=== PATIENT | female | born 1985 | race Asian ===

== ENCOUNTER → 2016-10-31 | Outpatient (CLI) | payer BC | END | disposition home or self-care (01) | LOC: C.LAB 07:56 | PROVIDERS: ATTEND Obstetrics & Gynecology | DX: N97.9 Female infertility, unspecified (principal) ==

== ENCOUNTER → 2017-01-21 | Outpatient (CLI) | payer BC ==
[2017-01-21 12:30] LABS: SEMEN VOLUME 1.5 ML
[2017-01-21 12:39] LABS: POST WASH EXAM EXCELLENT
== END | disposition home or self-care (01) ==
LOC: C.LAB 11:51
PROVIDERS: ATTEND Obstetrics & Gynecology
DX: N97.9 Female infertility, unspecified (principal)

== ENCOUNTER → 2017-02-09 | Outpatient (CLI) | payer BC ==
[2017-02-09 08:40] LABS: PROLACTIN 9.06 ng/mL
[2017-02-09 09:32] LABS: HEMATOCRIT 45.3 % (37-47); MEAN CORPUSCULAR HEMOGLOBIN 27.6 pg (25-34); MEAN CORPUSCULAR HGB CONC 32.5 g/dl (32-36); MEAN PLATELET VOLUME 9.8 fL (7.4-10.4); PLATELET COUNT 253 K/uL (130-400); RED BLOOD COUNT 5.33 M/uL (4.2-5.4); WHITE BLOOD COUNT 6.56 K/uL (4.8-10.8)
[2017-02-09 09:49] LABS: ESTIMATED AVERAGE GLUCOSE 105 mg/dl; HA1C FLAG Normal (Normal)
[2017-02-09 10:01] LABS: ALT/SGPT 53 U/L (12-78); AST/SGOT 25 U/L (15-37); BLOOD UREA NITROGEN 8 mg/dl (7-18); CREATININE 0.84 mg/dl (0.60-1.20); GLUCOSE,FASTING 118 mg/dl (70-99)
[2017-02-09 10:04] LABS: ALKALINE PHOSPHATASE 81 U/L (45-117)
[2017-02-09 10:17] LABS: RUBELLA SCREEN IgG (AT CCH) IMMUNE (IMMUNE)
--- NOTE | 2017-02-14 10:57 | CODING QUERY MEDICAL NECESSITY ---
CQSUPPORTING DIAGNOSIS NEEDED A supporting diagnosis is required for the test/procedure performed on this patient in order for us to be reimbursed by the patient's insurance. Please provide a supporting diagnosis for the following test/procedure listed below next to the test name along with your signature. *If there is no additional diagnosis for this patient that would support the following test/procedure please document that below next to the test/procedure. Test(s)/Procedure(s) that require a supporting diagnosis: DOS 02/09/17 BLOOD GLUCOSE TEST SCREENING FOR SEXUALLY TRANSMITTED DISEASES GLYCATED HEMOGLOBIN VITAMIN D TEST Provider Signature: Date: Thank you Kellee Carty [facility] Information Management Once completed, please kindly fax back to [phone] For questions please call [phone]
[2017-02-14 12:39] LABS: 17 HYDROXYPROGEST 17180X 89 ng/dL; HCT 47.8 % (35.0-45.0); HEMOGLOBIN A2 2.9 % (1.8-3.5); HGB 15.3 g/dL (11.7-15.5); MCH 28.9 pg (27.0-33.0); MCV 90.2 FL (80.0-100.0); RDW 14.8 % (11.0-15.0); TESTOSTERONE,TOTAL 25 ng/dL (2-45)
== END | disposition home or self-care (01) ==
LOC: C.LAB 07:18
PROVIDERS: ATTEND Specialist
DX: Z31.41 Encounter for fertility testing (principal); E28.2 Polycystic ovarian syndrome; Z01.83 Encounter for blood typing; Z11.59 Encounter for screening for other viral diseases; Z11.3 Encounter for screening for infections with a predominantly sexual mode of transmission; Z11.4 Encounter for screening for human immunodeficiency virus [HIV]; Z13.0 Encounter for screening for diseases of the blood and blood-forming organs and certain disorders involving the immune mechanism; Z13.21 Encounter for screening for nutritional disorder

== ENCOUNTER → 2017-03-30 | Outpatient (CLI) | payer BC ==
[2017-03-30 11:44] LABS: ALT/SGPT 77 U/L (12-78); BLOOD UREA NITROGEN 11 mg/dl (7-18); CREATININE 0.76 mg/dl (0.60-1.20)
[2017-03-30 11:47] LABS: ALKALINE PHOSPHATASE 73 U/L (45-117); AST/SGOT 39 U/L (15-37)
== END | disposition home or self-care (01) ==
LOC: C.LAB1850 10:14
PROVIDERS: ATTEND Specialist
DX: E28.2 Polycystic ovarian syndrome (principal)

== ENCOUNTER → 2017-05-11 | Outpatient (CLI) | payer BC ==
[2017-05-11 16:03] LABS: ALT/SGPT 91 U/L (12-78); AST/SGOT 40 U/L (15-37); BLOOD UREA NITROGEN 9 mg/dl (7-18); CREATININE 0.68 mg/dl (0.60-1.20)
[2017-05-11 16:06] LABS: ALKALINE PHOSPHATASE 93 U/L (45-117)
== END | disposition home or self-care (01) ==
LOC: C.LAB1850 14:24
PROVIDERS: ATTEND Specialist
DX: E28.2 Polycystic ovarian syndrome (principal)

== ENCOUNTER → 2017-06-30 | Outpatient (CLI) | payer BC | END | disposition home or self-care (01) | LOC: C.LAB1850 14:45 | PROVIDERS: ATTEND Specialist | DX: E28.2 Polycystic ovarian syndrome (principal) ==

== ENCOUNTER → 2017-08-25 | Outpatient (CLI) | payer BC | END | disposition home or self-care (01) | LOC: C.LAB 08:00 | PROVIDERS: ATTEND Specialist | DX: D68.9 Coagulation defect, unspecified (principal) ==

== ENCOUNTER 2023-10-13 11:34 | Inpatient (IN) ==
[2023-10-13 12:56] LABS: Basophils # (auto) 0.04 K/uL (0.00-0.20); Basophils % (auto) 0.4 %; Eosinophils # (auto) 0.07 K/uL (0.00-0.50); Eosinophils % (auto) 0.8 %; Hemoglobin 14.1 g/dl (12.0-16.0); Immature Granulocytes # (auto) 0.04 K/uL (0.01-0.20); Immature Granulocytes % (auto) 0.4 %; Lymphocytes # (auto) 1.97 K/uL (1.20-3.40); Lymphocytes % (auto) 21.9 %; Mean Corpuscular Hemoglobin 30.1 pg (25.0-34.0); Mean Corpuscular Hgb Conc 34.4 g/dL (32.0-36.0); Mean Corpuscular Volume 87.4 fL (80.0-100.0); Mean Platelet Volume 10.2 fL (9.4-12.4); Monocytes # (auto) 0.52 K/uL (0.11-0.59); Monocytes % (auto) 5.8 %; Neutrophils # (auto) 6.37 K/uL (1.40-6.50); Neutrophils % (auto) 70.7 %; Platelet Count 196 K/uL (130-400); RDW Standard Deviation 43.7 fL (36.4-46.3); Red Blood Count 4.69 M/uL (4.20-5.40); White Blood Count 9.01 K/ul (4.8-10.8)
[2023-10-13 13:17] LABS: Alanine Aminotransferase 17 U/L (7-52); Albumin Level 3.3 gm/dl (3.4-5.0); Alkaline Phosphatase 140 U/L (34-104); Anion Gap 6 (3-11); Aspartate Aminotransferase 23 U/L (13-39); BUN Creatinine Ratio 13.3 (10-20); Bilirubin,Total 0.3 mg/dl (0.2-1.0); Blood Urea Nitrogen 10 mg/dl (6-23); Calcium 8.6 mg/dl (8.6-10.3); Carbon Dioxide 22 mmol/L (21-32); Chloride 108 mmol/L (98-107); Est GFR (African American) 116.4 ml/min; Est GFR (Non-African American) 100.4 ml/min; Globulin 3.4 gm/dl (2.5-4.0); Glucose 77 mg/dl (70-99(Fasting)); Potassium 4.3 mmol/L (3.5-5.1); Sodium 136 mmol/L (136-145); Total Protein 6.7 gm/dl (6.0-8.3)
[2023-10-13 13:53] LABS: Creatinine Urine Random 20.8 mg/dl; Protein Creatinine Ratio Urine 0.4 (0-0.2); Total Protein Urine Random 7.6 mg/dl (0-11.9)
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
[2023-10-13] MEDS ORDERED: OXYTOCIN 30 UNITS/NSS 30 UNITS/500 ML BAG IV PRN (14:43)
[2023-10-13] MEDS ORDERED: LIDOCAINE 1% LOCAL 20 ML VIAL INFIL PRN (14:43)
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
[2023-10-13] MEDS: OXYTOCIN 30 UNITS/NSS 30 UNITS/500 ML BAG IV PRN (16:50)
[2023-10-13] MEDS: LACTATED RINGER'S 1,000 ML IV PRN (16:50)
--- NOTE | 2023-10-13 18:29 | Labor Progress Brief Note ---
Date of Service October 13, 2023 Subjective tearful as she is anxious about this process Assessment & Plan (1) 38 weeks gestation of : (2) Encounter for induction of labor: (3) Mild preeclampsia: (4) Gestational diabetes: (5) Supervision of elderly primigravida: Plan will see how arom helps labor pattern, c/w pit. fhts categ 1. epidural when desires. bps not in severe range. Admission and Anticipated Discharge Date Admission Date: October 13, 2023 Physical Exam Constitutional: WD/WN, vitals as above Genitourinary: Manual OB Exam: + cervical dilation (2-3), + cervical effacement (75%), + station -2 and + amniotic fluid (arom) clear OB Exam Monitor Tracing: + external FHT monitor used, + external uterine monitor used (q4. pit at 5), + category I and + normal FHT variability Results & Data Vital Signs (Past 12 Hours) Vital Signs Temp Pulse Resp BP 10/13/23 17:50 83 10/13/23 17:50 139/91 10/13/23 16:53 82 10/13/23 16:53 141/82 H 10/13/23 14:48 75 10/13/23 14:48 154/84 H 10/13/23 14:37 78 10/13/23 14:37 149/81 H 10/13/23 12:37 98.1 F 20 10/13/23 12:03 73 144/84 H 10/13/23 12:02 79 146/92 H 10/13/23 12:00 20 10/13/23 12:00 98.1 F 20 Coding Level of Care Code None Diagnoses 38 weeks gestation of Z3A.38 Encounter for induction of labor Z34.90 Mild preeclampsia O14.00 Gestational diabetes O24.419 Supervision of elderly primigravida O09.519
[2023-10-13] MEDS ORDERED: BUPIVACAINE 0.25% PF 30 ML VIAL EPI PRN (19:11)
[2023-10-13] MEDS ORDERED: ROPIVACAINE 0.5% PF 5 MG/ML 20 ML VIAL EPI PRN (19:11)
[2023-10-13] MEDS ORDERED: NALOXONE HCL 0.4 MG/1 ML VIAL/CARP IV PRN ×2 (19:11→23:39)
[2023-10-13] MEDS ORDERED: diphenhydrAMINE 50 MG/ML VIAL IV PRN ×2 (19:11→23:39)
[2023-10-13] MEDS ORDERED: fentANYL 2 MCG/ML BUPIVacaine 0.125%-NSS 100ML BAG EPI PRN (19:11)
[2023-10-13] MEDS ORDERED: NALBUPHINE HCL 5 MG in SYRINGE 0 ML IV PRN ×2 (19:11→23:39)
[2023-10-13] MEDS ORDERED: fentaNYL citrate PF 100 MCG/2 ML VIAL EPI PRN (19:11)
[2023-10-13] MEDS ORDERED: ePHEDrine sulfate 50 MG/ML AMP IV PRN ×2 (19:11→23:39)
[2023-10-13] MEDS ORDERED: SODIUM CHLORIDE 0.9% PF INJ 10 ML VIAL EPI PRN (19:11)
[2023-10-13] MEDS ORDERED: LIDOCAINE 2% MPF LOCAL 5 ML VIAL EPI PRN (19:11)
[2023-10-13] MEDS ORDERED: NALOXONE HCL 1 MG in SODIUM CHLORIDE 0.9% 1,000 ML IV PRN ×2 (19:11→23:39)
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
[2023-10-13] MEDS: LIDOCAINE 2%/EPINEPHRINE 1:200,000 20 ML PF ONE (19:33)
[2023-10-13] MEDS: BUPIVACAINE 0.25% PF 30 ML VIAL ONE (19:33)
[2023-10-13] MEDS: fentANYL 2 MCG/ML BUPIVacaine 0.125%-NSS 100ML BAG ONE (19:33)
--- NOTE | 2023-10-13 21:54 | Labor Progress Brief Note ---
Date of Service October 13, 2023 Subjective came to see pt due to persistent variables. Assessment & Plan (1) Encounter for induction of labor: (2) 38 weeks gestation of : (3) Mild preeclampsia: (4) Gestational diabetes: (5) Supervision of elderly primigravida: (6) Variable heart rate decelerations, antepartum: Plan will see if pt can stay in knee chest for about 10min and see if variables subside. if not, within that time will likely start 2nd stage. fhts categ 2. Admission and Anticipated Discharge Date Admission Date: October 13, 2023 Physical Exam Constitutional: WD/WN, vitals as above Genitourinary: Manual OB Exam: + cervical dilation (ant lip, reduced with pushing), + cervical effacement 100% and + station + 2 OB Exam Monitor Tracing: + external FHT monitor used, + external uterine monitor used (q2 ), + category I, + normal FHT variability (good variability and scalp stim) and + variable decelerations maternal pushing efforts ok. rec knee chest, due to difficulty tracing efm, fse applied. Results & Data Vital Signs (Past 12 Hours) Vital Signs Temp Pulse Resp BP Pulse Ox 10/13/23 21:46 99 10/13/23 21:46 96 H 10/13/23 21:43 82 L 10/13/23 21:43 102 H 10/13/23 21:41 98 10/13/23 21:41 101 H 10/13/23 21:36 99 10/13/23 21:36 76 10/13/23 21:35 77 10/13/23 21:35 150/76 H 10/13/23 21:31 100 10/13/23 21:31 74 10/13/23 21:26 100 10/13/23 21:26 75 10/13/23 21:21 99 10/13/23 21:21 75 10/13/23 21:20 70 10/13/23 21:20 136/78 10/13/23 21:16 98 10/13/23 21:16 73 10/13/23 21:11 97 10/13/23 21:11 73 10/13/23 21:06 100 10/13/23 21:06 73 10/13/23 21:05 18 10/13/23 21:05 99.0 F 18 10/13/23 21:05 74 10/13/23 21:05 144/80 H 10/13/23 21:01 98 10/13/23 21:01 81 10/13/23 21:00 18 10/13/23 21:00 18 10/13/23 20:56 98 10/13/23 20:56 88 10/13/23 20:51 99 10/13/23 20:51 87 10/13/23 20:50 94 H 10/13/23 20:50 158/88 H 10/13/23 20:46 99 10/13/23 20:46 90 10/13/23 20:43 90 10/13/23 20:43 99 H 10/13/23 20:41 99 10/13/23 20:41 92 H 10/13/23 20:36 99 10/13/23 20:36 97 H 10/13/23 20:35 90 10/13/23 20:35 143/83 H 10/13/23 20:31 99 10/13/23 20:31 88 10/13/23 20:30 18 10/13/23 20:30 18 10/13/23 20:27 90 10/13/23 20:27 105 H 10/13/23 20:26 98 10/13/23 20:26 95 H 10/13/23 20:22 99 H 10/13/23 20:22 136/76 10/13/23 20:21 99 10/13/23 20:21 84 10/13/23 20:16 100 10/13/23 20:16 81 10/13/23 20:11 100 10/13/23 20:11 82 10/13/23 20:06 100 10/13/23 20:06 79 10/13/23 20:05 92 H 10/13/23 20:05 143/67 H 10/13/23 20:01 97 10/13/23 20:01 100 H 10/13/23 20:00 18 10/13/23 20:00 18 10/13/23 20:00 91 10/13/23 20:00 97 H 10/13/23 19:58 95 H 10/13/23 19:58 101/79 10/13/23 19:56 100 10/13/23 19:56 84 10/13/23 19:55 81 03/21/24 19:55 124/72 10/13/23 19:51 100 10/13/23 19:51 89 10/13/23 19:48 77 10/13/23 19:48 133/67 10/13/23 19:46 100 10/13/23 19:46 78 10/13/23 19:46 18 10/13/23 19:46 98.2 F 18 10/13/23 19:45 18 10/13/23 19:45 18 10/13/23 19:43 102 H 10/13/23 19:43 110/73 10/13/23 19:41 100 10/13/23 19:41 86 10/13/23 19:41 90 10/13/23 19:41 114/67 10/13/23 19:38 84 10/13/23 19:38 129/67 10/13/23 19:36 100 10/13/23 19:36 90 10/13/23 19:36 129/75 10/13/23 19:35 99 H 10/13/23 19:35 130/73 10/13/23 19:31 100 10/13/23 19:31 94 H 10/13/23 19:31 86 10/13/23 19:31 143/84 H 10/13/23 19:26 99 10/13/23 19:26 73 10/13/23 19:21 100 10/13/23 19:21 75 10/13/23 19:21 89 L 10/13/23 19:21 86 10/13/23 19:20 20 10/13/23 19:20 20 10/13/23 19:14 100 10/13/23 19:14 74 10/13/23 18:41 74 10/13/23 18:41 148/96 H 10/13/23 17:50 83 10/13/23 17:50 139/91 10/13/23 16:53 82 10/13/23 16:53 141/82 H 10/13/23 14:48 75 10/13/23 14:48 154/84 H 10/13/23 14:37 78 10/13/23 14:37 149/81 H 10/13/23 12:37 98.1 F 20 10/13/23 12:03 73 144/84 H 10/13/23 12:02 79 146/92 H 10/13/23 12:00 20 10/13/23 12:00 98.1 F 20 Coding Level of Care Code None Diagnoses Encounter for induction of labor Z34.90 38 weeks gestation of Z3A.38 Mild preeclampsia O14.00 Gestational diabetes O24.419 Supervision of elderly primigravida O09.519 Variable heart rate decelerations, antepartum O36.8390
[2023-10-13] MEDS ORDERED: MoRPHine SULFATE PF 1 MG/ML 10 ML AMP/VIAL ONE (23:00)
[2023-10-13] MEDS ORDERED: ONDANSETRON INJ 2 MG/ML 2 ML VIAL ONE (23:00)
[2023-10-13] MEDS ORDERED: KETOROLAC 30 MG/ML VIAL ONE (23:00)
[2023-10-13] MEDS ORDERED: OXYTOCIN 10 UNITS/ML VIAL ONE (23:00)
[2023-10-13] MEDS ORDERED: LIDOCAINE 2%/EPINEPHRINE 1:200,000 20 ML PF ONE (23:00)
--- NOTE | 2023-10-13 23:02 | Labor Progress Brief Note ---
Date of Service October 13, 2023 Subjective persistent variables, deep at times. ongoing evaluation of pt Assessment & Plan (1) Encounter for induction of labor: (2) 38 weeks gestation of : (3) Mild preeclampsia: (4) Gestational diabetes: (5) Non-reassuring electronic monitoring tracing: Plan recommend patient undergo c/s as i am unable to resolve deep variables and she is remote from delivery. station does not allow assistance from below and lip is recurring, not reducing. she and partner aware and agree. consent reviewed and signed. pit discontinued. ancef and azithromycin. anesth and peds aware. Admission and Anticipated Discharge Date Admission Date: October 13, 2023 Physical Exam Constitutional: WD/WN, vitals as above Genitourinary: Manual OB Exam: + cervical dilation (ant lip), + cervical effacement 100% and + station 0 and + 1 OB Exam Monitor Tracing: + scalp electrode used, + intra-uterine pressure catheter used (500cc amnioinfusion normal saline), + category II, + normal FHT variability and + variable decelerations pt moved in many positions. amnioinfusion given. mvus about 180 with pit at 7. deep variables at times. pt attempted to push and reduce lip without success. multiple times. Results & Data Vital Signs (Past 12 Hours) Vital Signs Temp Pulse Resp BP Pulse Ox 10/13/23 22:52 96 10/13/23 22:52 114 H 10/13/23 22:50 78 L 10/13/23 22:50 113 H 10/13/23 22:47 100 10/13/23 22:47 110 H 10/13/23 22:42 99 10/13/23 22:42 108 H 10/13/23 22:37 97 10/13/23 22:37 101 H 10/13/23 22:36 97 H 10/13/23 22:36 136/78 10/13/23 22:32 97 10/13/23 22:32 103 H 10/13/23 22:27 98 10/13/23 22:27 107 H 10/13/23 22:22 99 10/13/23 22:22 113 H 10/13/23 22:20 101 H 10/13/23 22:20 151/88 H 10/13/23 22:17 97 10/13/23 22:17 105 H 10/13/23 22:11 100 10/13/23 22:11 106 H 10/13/23 22:06 97 10/13/23 22:06 121 H 10/13/23 22:01 100 10/13/23 22:01 107 H 10/13/23 21:56 98 10/13/23 21:56 91 H 10/13/23 21:51 99 10/13/23 21:51 99 H 10/13/23 21:51 145/82 H 10/13/23 21:46 99 10/13/23 21:46 96 H 10/13/23 21:43 82 L 10/13/23 21:43 102 H 10/13/23 21:41 98 10/13/23 21:41 101 H 10/13/23 21:36 99 10/13/23 21:36 76 10/13/23 21:35 77 10/13/23 21:35 150/76 H 10/13/23 21:31 100 10/13/23 21:31 74 10/13/23 21:30 18 10/13/23 21:30 18 10/13/23 21:26 100 10/13/23 21:26 75 10/13/23 21:21 99 10/13/23 21:21 75 10/13/23 21:20 70 10/13/23 21:20 136/78 10/13/23 21:16 98 10/13/23 21:16 73 10/13/23 21:11 97 10/13/23 21:11 73 10/13/23 21:06 100 10/13/23 21:06 73 10/13/23 21:05 18 10/13/23 21:05 99.0 F 18 10/13/23 21:05 74 10/13/23 21:05 144/80 H 10/13/23 21:01 98 10/13/23 21:01 81 10/13/23 21:00 18 10/13/23 21:00 18 10/13/23 20:56 98 10/13/23 20:56 88 10/13/23 20:51 99 10/13/23 20:51 87 10/13/23 20:50 94 H 10/13/23 20:50 158/88 H 10/13/23 20:46 99 10/13/23 20:46 90 10/13/23 20:43 90 10/13/23 20:43 99 H 10/13/23 20:41 99 10/13/23 20:41 92 H 10/13/23 20:36 99 10/13/23 20:36 97 H 10/13/23 20:35 90 10/13/23 20:35 143/83 H 10/13/23 20:31 99 10/13/23 20:31 88 10/13/23 20:30 18 10/13/23 20:30 18 10/13/23 20:27 90 10/13/23 20:27 105 H 10/13/23 20:26 98 10/13/23 20:26 95 H 10/13/23 20:22 99 H 10/13/23 20:22 136/76 10/13/23 20:21 99 10/13/23 20:21 84 10/13/23 20:16 100 10/13/23 20:16 81 10/13/23 20:11 100 10/13/23 20:11 82 10/13/23 20:06 100 10/13/23 20:06 79 10/13/23 20:05 92 H 10/13/23 20:05 143/67 H 10/13/23 20:01 97 10/13/23 20:01 100 H 10/13/23 20:00 18 10/13/23 20:00 18 10/13/23 20:00 91 10/13/23 20:00 97 H 10/13/23 19:58 95 H 10/13/23 19:58 101/79 10/13/23 19:56 100 10/13/23 19:56 84 10/13/23 19:55 81 10/13/23 19:55 124/72 10/13/23 19:51 100 10/13/23 19:51 89 10/13/23 19:48 77 10/13/23 19:48 133/67 10/13/23 19:46 100 10/13/23 19:46 78 10/13/23 19:46 18 10/13/23 19:46 98.2 F 18 10/13/23 19:45 18 10/13/23 19:45 18 10/13/23 19:43 102 H 10/13/23 19:43 110/73 10/13/23 19:41 100 10/13/23 19:41 86 10/13/23 19:41 90 10/13/23 19:41 114/67 10/13/23 19:38 84 10/13/23 19:38 129/67 10/13/23 19:36 100 10/13/23 19:36 90 10/13/23 19:36 129/75 10/13/23 19:35 99 H 10/13/23 19:35 130/73 10/13/23 19:31 100 10/13/23 19:31 94 H 10/13/23 19:31 86 10/13/23 19:31 143/84 H 10/13/23 19:26 99 10/13/23 19:26 73 10/13/23 19:21 100 10/13/23 19:21 75 10/13/23 19:21 89 L 10/13/23 19:21 86 10/13/23 19:20 20 10/13/23 19:20 20 10/13/23 19:14 100 10/13/23 19:14 74 10/13/23 18:41 74 10/13/23 18:41 148/96 H 10/13/23 17:50 83 10/13/23 17:50 139/91 10/13/23 16:53 82 10/13/23 16:53 141/82 H 10/13/23 14:48 75 10/13/23 14:48 154/84 H 10/13/23 14:37 78 10/13/23 14:37 149/81 H 10/13/23 12:37 98.1 F 20 10/13/23 12:03 73 144/84 H 10/13/23 12:02 79 146/92 H 10/13/23 12:00 20 10/13/23 12:00 98.1 F 20 Coding Level of Care Code None Diagnoses Encounter for induction of labor Z34.90 38 weeks gestation of Z3A.38 Mild preeclampsia O14.00 Gestational diabetes O24.419 Non-reassuring electronic monitoring tracing O36.8390
[2023-10-13] MEDS ORDERED: PHENYLEPHRINE 100MCG/ML 10ML SYR IV ONE (23:36)
[2023-10-13] MEDS ORDERED: SODIUM BICARBONATE 8.4% INJ 50 MEQ/50 ML VIAL ONE (23:36)
[2023-10-13] MEDS ORDERED: ePHEDrine sulfate 50 MG/5 ML SYR ONE (23:36)
[2023-10-13] MEDS ORDERED: CARBOPROST TROMETHAMINE 250 MCG/ML AMPUL ONE (23:37)
[2023-10-13] MEDS ORDERED: HYDROmorphone INJ 0.5 MG/0.5 ML SYR IV PRN (23:39)
[2023-10-13] MEDS ORDERED: PROMETHAZINE HCL 6.25 MG in SODIUM CHLORIDE 0.9% 50 ML IV PRN (23:39)
[2023-10-13] MEDS ORDERED: LACTATED RINGER'S 500 ML IV PRN (23:39)
[2023-10-13] MEDS ORDERED: NALOXONE HCL 0.08 MG in SYRINGE 1.8 ML IV PRN (23:39)
[2023-10-13] MEDS ORDERED: ONDANSETRON INJ 2 MG/ML 2 ML VIAL IV PRN (23:39)
[2023-10-13] MEDS ORDERED: ACETAMINOPHEN 1,000 MG/100 ML VIAL IV PRN (23:39)
[2023-10-13] MEDS ORDERED: DC INTRASPINAL MORPHINE SCH (23:45)
[2023-10-13] MEDS ORDERED: NO NARCOTICS OR SEDATIVES SCH (23:45)
--- NOTE | 2023-10-14 00:13 | Operative Report ---
PG Post Operative Report Pre & Post Diagnosis Operation Date: 10/13/23 23:15 Pre-Op Diagnosis: 1. 38+ weeks IUP 2. Preeclampsia without severe features 3. Gestational Diabetes 4. AMA 5. Induction of labor 6. Non-reassuring heart tones Post-Op Diagnosis: 1. same 2. delivery of live male child at 2317 I identified the patient and participated in the time-out.: Yes Procedure Operation Date: 10/13/23 23:15 Actual Procedures p Primary Low Transverse Section in LD(Bilateral) - Sonal Al MD, FACOG Surgeon Sonal Al MD, FACOG Psychotherapist RN Estimated Blood Loss 700 Findings Consistent with Post-Op Diagnosis (viable male infant, apgars 8,9. normal uterus and bilateral tubes and ovaries. posterior mid body ss fibroid about 3cm. ) Fluids 1500 Specimens cord blood and cord gases Drains prado Anesthesia Type Labor Epidural Complications none Disposition Accompanied Patient To Recovery: No Disposition: L&D Indications 38yo at 38wks with preeclampsia for induction of labor. also complicated by ama, gdm. Patient received pitocin induction and progressed well. Unfortunately was stuck at anterior lip that could not be reduced and repetitive deep variable decelerations noted remote from delivery prompted recommendation for section. Description of Procedure The patient was taken to the operating room and identified. After adequate anesthesia was obtained, she was placed in the supine position with a leftward tilt on the operating table and prepped and draped in the usual sterile fashion. A prado catheter had already been placed. The knife was used to create a Pfannensteil skin incision that was carried down to the underlying layer of fascia. The fascia was nicked in the midline and this opening was extended laterally using Bennett scissors. Afsaneh clamps were placed on the superior and inferior aspect of the fascial incision tenting it upward and the underlying rectus muscles were dissected off the overlying fascia both sharply and bluntly using Bennett scissors. The rectus muscles were bluntly in the midline. The peritoneal cavity was bluntly entered into. This opening was stretched. The bladder blade was placed. The vesicouterine peritoneum was elevated and opened up into and the bladder flap was created digitally and bladder blade was replaced. The knife was used to create a hysterotomy and this opening was stretched. The operators hand was placed through the hysterotomy and the bladder blade was removed. The head was elevated and notably OP and flexed and with fundal pressure the head was delivered. The shoulders and body were rapidly delivered. The cord was clamped and cut after about 30sec and the infant's mouth and nares were bulb suction. The was handed off to the awaiting pediatricians. Cord blood and gases were obtained. The placenta was manually expressed. The uterus was exteriorized and cleared of all clots and debris. Dilute IV Pitocin was begun. The uterine tone was not improving and so IM hemabate into uterine muscle given. The hysterotomy was closed in a running interlocking fashion using 0 Vicryl followed by a second imbricating layer of 0 Vicryl. Additional figure of eight sutures of 2-0 vicryl were placed at bleeding sites. The hysterotomy was hemostatic. The pelvis was suctioned. The uterus was returned to the abdomen. The gutters were cleared of all clots and debris. The hysterotomy was reinspected and noted to be hemostatic. Karine was placed across hysterotomy. The fascia was then closed in running fashion using 0 Vicryl. The subcutaneous fat was copiously irrigated and reapproximated using 2-0 chromic. The skin was closed in a subcuticular fashion using 4-0 monocryl. At this point the procedure was terminated. The patient was transferred to the recovery room in stable condition. All sponge, lap and needle counts are correct x2. I attest to the content of the Intraoperative Record and any orders documented therein. Any exceptions are noted below. OB Procedure Charges 30698
--- NOTE | 2023-10-14 00:22 | Anesthesia Procedure Note ---
Date of Service October 14, 2023 Anesthesia Post Epidural Note Vital Signs Vital Signs: Temp Pulse Resp BP Pulse Ox 99.0 F 88 20 119/60 97 10/13/23 21:05 10/14/23 00:17 10/13/23 23:00 10/14/23 00:17 10/14/23 00:16 Notes Mental Status: alert / awake / arousable and participated in evaluation Nausea / Vomiting: adequately controlled Pain: adequately controlled Airway Patency, RR, SpO2: stable & adequate BP & HR: stable & adequate Hydration State: stable & adequate Neuraxial Anesthesia: was administered and sensory block is resolving Anesthetic Complications: no major complications apparent and Pt Satisfied with anesthetic care Epidural: Removed without complications and With tip intact
--- NOTE | 2023-10-14 00:23 | Anesthesiology Progress Note ---
Date of Service October 14, 2023 Anesthesia Post Procedure Vital Signs Vital Signs: Temp Pulse Resp BP Pulse Ox 10/14/23 00:17 88 119/60 10/14/23 00:16 94 H 97 10/13/23 23:02 98 10/13/23 23:02 106 H 10/13/23 23:00 20 10/13/23 23:00 20 10/13/23 22:57 96 10/13/23 22:57 110 H 10/13/23 22:52 96 10/13/23 22:52 114 H 10/13/23 22:50 78 L 10/13/23 22:50 113 H 10/13/23 22:47 100 10/13/23 22:47 110 H 10/13/23 22:42 99 10/13/23 22:42 108 H 10/13/23 22:37 97 10/13/23 22:37 101 H 10/13/23 22:36 97 H 10/13/23 22:36 136/78 10/13/23 22:32 97 10/13/23 22:32 103 H 10/13/23 22:30 18 10/13/23 22:30 18 10/13/23 22:27 98 10/13/23 22:27 107 H 10/13/23 22:22 99 10/13/23 22:22 113 H 10/13/23 22:20 101 H 10/13/23 22:20 151/88 H 10/13/23 22:17 97 10/13/23 22:17 105 H 10/13/23 22:11 100 10/13/23 22:11 106 H 10/13/23 22:06 97 10/13/23 22:06 121 H 10/13/23 22:01 100 10/13/23 22:01 107 H 10/13/23 22:00 20 10/13/23 22:00 20 10/13/23 21:56 98 10/13/23 21:56 91 H 10/13/23 21:51 99 10/13/23 21:51 99 H 10/13/23 21:51 145/82 H 10/13/23 21:46 99 10/13/23 21:46 96 H 10/13/23 21:43 82 L 10/13/23 21:43 102 H 10/13/23 21:41 98 10/13/23 21:41 101 H 10/13/23 21:36 99 10/13/23 21:36 76 10/13/23 21:35 77 10/13/23 21:35 150/76 H 10/13/23 21:31 100 10/13/23 21:31 74 10/13/23 21:30 18 10/13/23 21:30 18 10/13/23 21:26 100 10/13/23 21:26 75 10/13/23 21:21 99 10/13/23 21:21 75 10/13/23 21:20 70 10/13/23 21:20 136/78 10/13/23 21:16 98 10/13/23 21:16 73 10/13/23 21:11 97 10/13/23 21:11 73 10/13/23 21:06 100 10/13/23 21:06 73 10/13/23 21:05 18 10/13/23 21:05 99.0 F 18 10/13/23 21:05 74 10/13/23 21:05 144/80 H 10/13/23 21:01 98 10/13/23 21:01 81 10/13/23 21:00 18 10/13/23 21:00 18 10/13/23 20:56 98 10/13/23 20:56 88 10/13/23 20:51 99 10/13/23 20:51 87 10/13/23 20:50 94 H 10/13/23 20:50 158/88 H 10/13/23 20:46 99 10/13/23 20:46 90 10/13/23 20:43 90 10/13/23 20:43 99 H 10/13/23 20:41 99 10/13/23 20:41 92 H 10/13/23 20:36 99 10/13/23 20:36 97 H 10/13/23 20:35 90 10/13/23 20:35 143/83 H 10/13/23 20:31 99 10/13/23 20:31 88 10/13/23 20:30 18 10/13/23 20:30 18 10/13/23 20:27 90 10/13/23 20:27 105 H 10/13/23 20:26 98 10/13/23 20:26 95 H 10/13/23 20:22 99 H 10/13/23 20:22 136/76 10/13/23 20:21 99 10/13/23 20:21 84 10/13/23 20:16 100 10/13/23 20:16 81 10/13/23 20:11 100 10/13/23 20:11 82 10/13/23 20:06 100 10/13/23 20:06 79 10/13/23 20:05 92 H 10/13/23 20:05 143/67 H 10/13/23 20:01 97 10/13/23 20:01 100 H 10/13/23 20:00 18 10/13/23 20:00 18 10/13/23 20:00 91 10/13/23 20:00 97 H 10/13/23 19:58 95 H 10/13/23 19:58 101/79 10/13/23 19:56 100 10/13/23 19:56 84 10/13/23 19:55 81 10/13/23 19:55 124/72 10/13/23 19:51 100 10/13/23 19:51 89 10/13/23 19:48 77 10/13/23 19:48 133/67 10/13/23 19:46 100 10/13/23 19:46 78 10/13/23 19:46 18 10/13/23 19:46 98.2 F 18 10/13/23 19:45 18 10/13/23 19:45 18 10/13/23 19:43 102 H 10/13/23 19:43 110/73 10/13/23 19:41 100 10/13/23 19:41 86 10/13/23 19:41 90 10/13/23 19:41 114/67 10/13/23 19:38 84 10/13/23 19:38 129/67 10/13/23 19:36 100 10/13/23 19:36 90 10/13/23 19:36 129/75 10/13/23 19:35 99 H 10/13/23 19:35 130/73 10/13/23 19:31 100 10/13/23 19:31 94 H 10/13/23 19:31 86 10/13/23 19:31 143/84 H 10/13/23 19:26 99 10/13/23 19:26 73 10/13/23 19:21 100 10/13/23 19:21 75 10/13/23 19:21 89 L 10/13/23 19:21 86 10/13/23 19:20 20 10/13/23 19:20 20 10/13/23 19:14 100 10/13/23 19:14 74 10/13/23 18:41 74 10/13/23 18:41 148/96 H 10/13/23 17:50 83 10/13/23 17:50 139/91 10/13/23 16:53 82 10/13/23 16:53 141/82 H 10/13/23 14:48 75 10/13/23 14:48 154/84 H 10/13/23 14:37 78 10/13/23 14:37 149/81 H 10/13/23 12:37 98.1 F 20 10/13/23 12:03 73 144/84 H 10/13/23 12:02 79 146/92 H 10/13/23 12:00 20 10/13/23 12:00 98.1 F 20 Transfer of Care Handoff Completed per policy Notes Mental Status: alert / awake / arousable and participated in evaluation Patient Amnestic to Procedure: Yes Nausea / Vomiting: adequately controlled Pain: adequately controlled Airway Patency, RR, SpO2: stable & adequate BP & HR: stable & adequate Hydration State: stable & adequate Neuraxial Anesthesia: was administered and sensory block is resolving Anesthetic Complications: no major complications apparent and Pt Satisfied with anesthetic care
[2023-10-14 00:32] LABS: Base Excess Cord Venous Blood -1.4 mEq/L (-7.7-1.9); Cord Venous Blood HCO3 26 mmol/L (18.4-26.8); Cord Venous Blood PCO2 54 mmHg (30.4-57.2); Cord Venous Blood PO2 < 20 mmHg (14.1-43.3); Cord Venous Blood pH 7.29 (7.20-7.44); O2 Saturation Cord Venous Bld < 60.0 % (<68)
[2023-10-14 00:33] LABS: Base Excess Cord Arterial Bld -4.7 mEq/L (-9-1.8); CO2 Cord Arterial Blood 67 mmHg (39.1-73.5); HCO3 Cord Arterial Blood 25 mmol/L (19.7-28.5); Oxygen Sat Cord Arterial Blood < 60.0 % (<60); PO2 Cord Arterial Blood < 20 mmHg (4.1-31.7); pH Cord Arterial Blood 7.18 (7.1-7.38)
[2023-10-14] MEDS ORDERED: BENZOCAINE 20% SPRY 85 APPLN/85 GM CAN EXT PRN (00:35)
[2023-10-14] MEDS ORDERED: HYDROCORTISONE ACETATE 25 MG SUPP PR PRN (00:35)
[2023-10-14] MEDS ORDERED: ALBUTEROL HFA 8 GM INHALER INH PRN (00:35)
[2023-10-14] MEDS ORDERED: SENNA 8.6 MG TAB PO PRN (00:35)
[2023-10-14] MEDS: fentaNYL citrate PF 100 MCG/2 ML VIAL ONE (02:05)
[2023-10-14] MEDS: ePHEDrine sulfate 50 MG/ML AMP ONE (02:05)
[2023-10-14] MEDS: SODIUM CHLORIDE 0.9% PF INJ 10 ML VIAL ONE (02:05)
[2023-10-14] MEDS: fentaNYL citrate PF 100 MCG/2 ML VIAL EPI STA (02:06)
[2023-10-14] MEDS: SODIUM CHLORIDE 0.9% PF INJ 10 ML VIAL EPI STA (02:06)
[2023-10-14] MEDS: BUPIVACAINE 0.25% PF 30 ML VIAL EPI STA (02:06)
[2023-10-14] MEDS: LIDOCAINE 2%/EPINEPHRINE 1:200,000 20 ML PF EPI STA (02:06)
[2023-10-14] MEDS: OXYTOCIN 20 UNITS/LR 1,002 ML IV SCH (02:37)
[2023-10-14] MEDS: DOCUSATE SODIUM 100 MG CAP PO SCH (08:22)
[2023-10-14] MEDS: PRENATAL VITAMIN 1 TAB PO SCH (08:22)
[2023-10-14] MEDS: FERROUS SULFATE 325 MG TAB PO SCH (08:22)
[2023-10-14] MEDS: KETOROLAC 30 MG/ML VIAL IV PRN (08:22)
[2023-10-14] MEDS: SIMETHICONE 80 MG CHEW PO SCH (08:22)
[2023-10-14] MEDS ORDERED: diphenhydrAMINE Capsule 25 MG CAP PO PRN (17:39)
[2023-10-14] MEDS ORDERED: PROMETHAZINE HCL 25 MG in SODIUM CHLORIDE 0.9% 50 ML IV PRN (17:39)
[2023-10-14] MEDS ORDERED: ZOLPIDEM TARTRATE 5 MG TAB PO PRN (17:39)
[2023-10-14] MEDS ORDERED: diphenhydrAMINE 50 MG/ML VIAL IV PRN (17:39)
[2023-10-14] MEDS ORDERED: ONDANSETRON INJ 2 MG/ML 2 ML VIAL IV PRN (17:39)
[2023-10-14] MEDS: LORATADINE 10 MG TAB PO SCH (18:35)
[2023-10-14] MEDS: IBUPROFEN 600 MG TAB PO PRN (20:19)
[2023-10-14] MEDS: oxyCODONE/ACETAMINOPHEN 5mg/325mg TAB PO PRN (22:19)
[2023-10-15] MEDS ORDERED: Nursing to Pharmacy Communication SCH (00:15)
[2023-10-15 06:43] LABS: Basophils # (auto) 0.05 K/uL (0.00-0.20); Basophils % (auto) 0.3 %; Eosinophils # (auto) 0.09 K/uL (0.00-0.50); Eosinophils % (auto) 0.6 %; Hematocrit (blood only) 30.6 % (37.0-47.0); Hemoglobin 10.6 g/dl (12.0-16.0); Immature Granulocytes # (auto) 0.12 K/uL (0.01-0.20); Immature Granulocytes % (auto) 0.8 %; Lymphocytes # (auto) 1.91 K/uL (1.20-3.40); Lymphocytes % (auto) 12.2 %; Mean Corpuscular Hemoglobin 30.7 pg (25.0-34.0); Mean Corpuscular Hgb Conc 34.6 g/dL (32.0-36.0); Mean Corpuscular Volume 88.7 fL (80.0-100.0); Mean Platelet Volume 9.4 fL (9.4-12.4); Monocytes # (auto) 0.68 K/uL (0.11-0.59); Monocytes % (auto) 4.3 %; Neutrophils % (auto) 81.8 %; Platelet Count 156 K/uL (130-400); RDW Coefficient of Variation 14.5 % (11.5-14.5); RDW Standard Deviation 46.2 fL (36.4-46.3); Red Blood Count 3.45 M/uL (4.20-5.40); White Blood Count 15.65 K/ul (4.8-10.8)
--- NOTE | 2023-10-15 07:18 | Obstetrical Progress Note ---
Date of Service <Asia Villalta MD - Last Filed: 10/15/23 07:18> October 15, 2023 Assessment & Plan <Asia Villalta MD - Last Filed: 10/15/23 07:18> (1) Status post : (2) Encounter for assessment: Plan Patient with the above mentioned history and findings was evaluated at bedside and found awake, alert, oriented in all spheres, afebrile, and in no acute distress. Vital signs showed with 2 separate episodes of mild fever (38.2 soon after delivery and 37.8 yesterday afternoon). No clear source of infection and patient without localizing symptoms makes these elevations in temperature likely a result of course. Blood pressures remained stable between the 120- 130s systolic and diastolic <90 mmhg. Denies symptoms of severity. Her blood type is AB pos and today's hemoglobin is 10.6 g/dL. Serologies are negative for GBS and patient is Rubella immune. Overall, patient is doing well clinically. Therefore, will encourage ambulation as tolerated and will resume regular diet. She was encouraged to use one Percocet as needed and alternate that with Motrin to minimize risk of side effects associated to opioids. Will also order abdominal binder to help with pain management. Will continue to monitor vitals (i.e. BP and temperatures). Continue routine pp course. All questions were answered. <Radha Mujica MD - Last Filed: 10/15/23 08:50> (1) Status post : (2) Encounter for assessment: Subjective <Asia Villalta MD - Last Filed: 10/15/23 07:18> Felipa is a 38 y/o female who is POD #1 following primary LTCS (NRFHT) at 38+ weeks. complicated by GDM and mild pre-eclampsia. She reports feeling well overall this morning. Refers mild abdominal cramping & 4-5/10 pain well managed on analgesics. She attributes her pain more so to gas pain rather than pain due to her wound, and took 2 Percocet last night after which she felt drowsy. Voiding spontaneously. Tolerating meals overnight and able to ambulate some. Has passed gas but no bm yet. Has some persistent lochia with some improvement this morning. Currently with some difficulty. Constitutional: no fever, no chills or no sweats Denies shortness of breath or difficulty breathing. Cardiovascular: no chest pain or no palpitations Breast: no breast pain Genitourinary (female): no dysuria Neurologic: no headache(s) Denies changes in vision. Physical Exam <Asia Villalta MD - Last Filed: 10/15/23 07:18> General: Alert. Oriented to person, time, and place. Afebrile. No acute distress. Cardiac: Regular rate and rhythm, no murmurs/rubs/gallops. Respiratory: Clear to auscultation bilaterally a/p, no wheezes/rales/rhonchi. No increased work of breathing. Symmetrical chest rise. No respiratory distress. Abdomen: Soft, nontender, mildly distended. Low transverse surgical scar clean, without surrounding erythema or suppuration, and healing well. Uterus: Uterine fundus firm, palpable _ cm below umbilicus. Lower Extremities: Bilateral LE swelling. No deep calf pain. Vanda's negative bilaterally. Psych: Euthymic affect. Mood and affect congruence. Regular speech rate and content. Results & Data <Asia Villalta MD - Last Filed: 10/15/23 07:18> Vital Signs (Past 12 Hours) Vital Signs Temp Pulse Pulse Pulse Resp BP Pulse Ox 10/14/23 23:45 37.0 C 97 H 18 121/78 96 10/14/23 22:52 36.7 C 91 H 18 128/84 97 10/14/23 20:00 36.9 C 91 H 18 127/80 99 O2 Del Method 10/14/23 23:45 Room Air 10/14/23 22:52 Room Air 10/14/23 20:00 Room Air Supervising Physician <Radha Mujica MD - Last Filed: 10/15/23 08:50> Co-Signing Physician Notes Resident Physician Supervision Note: I interviewed and examined the patient. Discussed with Dr. Villalta and agree with findings and plan as documented in the note. Any exceptions or clarifications are listed here: POD2 from pLTCS, doing well. VSS, had slightly elevated temp yesterday afternoon but not actually febrile and nothing further so no antibx given. No obvious s/s of infection. Abd soft, appropriately tender, incision c/d/i. Continue routine pp care Documented By: Radha Mujica MD
[2023-10-15] MEDS: SODIUM CHLORIDE 0.65% NA SOLN 45 ML (OCEAN) PRN (09:36)
[2023-10-15] MEDS: LORATADINE 10 MG TAB PO SCH (21:09)
[2023-10-15] MEDS: LACTATED RINGER'S 1,000 ML IV SCH (22:12)
[2023-10-15] MEDS: DIPHTHER/TETAN/PERTUS Vaccine (Tdap, Adol/Adult) 0.5mL IM ONE (22:12)
[2023-10-16] MEDS ORDERED: bisacodyL 10 MG SUPP PR PRN
--- NOTE | 2023-10-16 06:42 | Obstetrical Progress Note ---
Date of Service October 16, 2023 day #2 from sections patient is doing well she is ambulating tolerating oral diet her bleeding is minimal lower extremities are nontender painful Assessment & Plan (1) Encounter for assessment: Postoperative from section patient meets discharge criteria as she is ambulating well tolerating an oral diet has minimal bleeding and no extremity pain. Discharge instructions were reviewed and prescriptions were sent to her pharmacy of choice patient advised to call with any concerns and follow-up in the office discussed Incision exam reveals clean dry and intact extremity exam negative patient wishes to stay 1 more day Physical Exam Constitutional WD/WN, vitals as above well developed and well nourished Respiratory normal respiratory effort, lungs clear to auscultation normal respiratory effort Cardiovascular RRR, no murmur, no edema Gastrointestinal (Abdomen) normal bowel sounds, soft, nontender, no hepatosplenomegaly Results & Data Vital Signs (Past 12 Hours) Vital Signs Temp Pulse Resp BP Pulse Ox O2 Del Method 10/15/23 23:05 98.2 F 82 18 137/80 96 Room Air 10/15/23 19:25 97.5 F L 72 18 136/93 99 Room Air
[2023-10-16 07:27] LABS: Hematocrit (blood only) 30.6 % (37.0-47.0); Hemoglobin 10.3 g/dl (12.0-16.0)
[2023-10-16] MEDS: MAGNESIUM HYDROXIDE SUSP 30 ML UDC PO PRN (17:13)
--- NOTE | 2023-10-17 07:41 | Obstetrical Progress Note ---
Date of Service <Asia Villalta MD - Last Filed: 10/17/23 07:42> October 17, 2023 Assessment & Plan <Asia Villalta MD - Last Filed: 10/17/23 07:42> (1) Status post : (2) Encounter for assessment: Plan Patient with the above mentioned history and findings was evaluated at bedside and found awake, alert, oriented in all spheres, afebrile, and in no acute distress. Vital signs showing elevated blood pressure readings (159 mmHg and 160 mmHg systolic blood pressure). Patient has remained asymptomatic, meaning she has not expressed having any symptoms of severity such as headaches, vision changes, right upper quadrant pain, shortness of breath, or any other symptoms. She is GBS negative and rubella immune. Overall, patient is doing well clinically. Will order nifedipine 10 mg now followed by nifedipine 30 mg twice daily as management of hypertension. Will continue to monitor patient's blood pressures throughout today to ensure proper control with nifedipine and ensure tolerance. If patient's blood pressures were to remain stable with this antihypertensive dose, will consider discharging patient later today with follow-up in OB clinic within a week for a blood pressure check. If blood pressure is not well-controlled or if patient were to develop new symptoms of severity, we will continue to monitor patient and consider discharge tomorrow if clinically stable. Patient in agreement. All questions were answered. <Ronda Nicole MD, FACOG - Last Filed: 10/18/23 07:52> (1) Status post : (2) Encounter for assessment: Subjective <Asia Villalta MD - Last Filed: 10/17/23 07:42> Felipa is a 38 y/o female who is POD #3 following primary LTCS (NRFHT) at 38+ weeks. complicated by GDM and mild pre-eclampsia. She reports feeling well overall this morning. Refers mild abdominal cramping & 4/10 pain well managed on analgesics. Voiding spontaneously. Tolerating meals overnight and able to ambulate some. Has passed gas but no bm yet. Has some persistent lochia with some improvement this morning. Currently . Constitutional: no fever, no chills or no sweats Denies shortness of breath or difficulty breathing. Cardiovascular: no chest pain or no palpitations Breast: no breast pain Genitourinary (female): no dysuria Neurologic: no headache(s) Denies changes in vision. Physical Exam <Asia Villalta MD - Last Filed: 10/17/23 07:42> General: Alert. Oriented to person, time, and place. Afebrile. No acute distress. Cardiac: Regular rate and rhythm, no murmurs/rubs/gallops. Respiratory: Clear to auscultation bilaterally a/p, no wheezes/rales/rhonchi. No increased work of breathing. Symmetrical chest rise. No respiratory distress. Abdomen: Soft, nontender, mildly distended. Low transverse surgical scar clean, without surrounding erythema or suppuration, and healing well. Uterus: Uterine fundus firm, non tender, and palpable below umbilicus. Lower Extremities: Bilateral LE swelling. No deep calf pain. Vanda's negative bilaterally. Psych: Euthymic affect. Mood and affect congruence. Regular speech rate and c ontent. Results & Data <Asia Villalta MD - Last Filed: 10/17/23 07:42> Vital Signs (Past 12 Hours) Vital Signs Temp Pulse Resp BP BP Pulse Ox O2 Del Method 10/17/23 04:50 159/96 H 160/87 H 10/17/23 00:20 36.6 C 74 20 144/89 H 100 Room Air 10/16/23 23:58 36 C L 84 20 99 Room Air Supervising Physician <Ronda Nicole MD, FACOG - Last Filed: 10/18/23 07:52> Co-Signing Physician Notes Resident Physician Supervision Note: I was present with [Name of resident] during the history and exam. I discussed the case with the resident and agree with the findings and plan as documented in the note. Any exceptions or clarifications are listed here: [None] Documented By: Ronda Nicole MD, FACOG
[2023-10-17 08:24] LABS: Hematocrit (blood only) 33.1 % (37.0-47.0); Hemoglobin 11.1 g/dl (12.0-16.0); Mean Corpuscular Hgb Conc 33.5 g/dL (32.0-36.0); Mean Corpuscular Volume 89.5 fL (80.0-100.0); Mean Platelet Volume 8.8 fL (9.4-12.4); Platelet Count 241 K/uL (130-400); RDW Coefficient of Variation 14.5 % (11.5-14.5); RDW Standard Deviation 45.9 fL (36.4-46.3); White Blood Count 10.12 K/ul (4.8-10.8)
[2023-10-17 08:34] LABS: BUN Creatinine Ratio 9.5 (10-20); Bilirubin Direct 0.1 mg/dl (0-0.2); Bilirubin,Total 0.3 mg/dl (0.2-1.0); Calcium 8.3 mg/dl (8.6-10.3); Est GFR (African American) 118.3 ml/min; Est GFR (Non-African American) 102.1 ml/min; Globulin 3.1 gm/dl (2.5-4.0); Potassium 4.3 mmol/L (3.5-5.1); Total Protein 6.1 gm/dl (6.0-8.3)
[2023-10-17] MEDS: NIFEdipine 10 MG CAP PO STA (08:38)
[2023-10-17] MEDS: NIFEdipine EXTENDED REL 30 MG TABCR PO SCH (11:06)
[2023-10-17] MEDS: LACTATED RINGER'S 1,000 ML IV SCH (19:17)
[2023-10-17] MEDS: SODIUM CHLORIDE 0.9% 1,000 ML IV SCH (19:17)
[2023-10-17] MEDS: MoRPHine SULFATE PF 1 MG/ML 10 ML AMP/VIAL INT SPINAL ONE (19:17)
[2023-10-17] MEDS: AZITHROMYCIN 500 MG in DEXTROSE 5% 250 ML IV ONE (19:22)
[2023-10-17] MEDS: ceFAZolin 2000MG 2,000 MG/15 ML SYR IV ONE (19:22)
--- NOTE | 2023-10-18 07:14 | Obstetrical Progress Note ---
Date of Service <Asia Villalta MD - Last Filed: 10/18/23 07:26> October 18, 2023 Assessment & Plan <Asia Villalta MD - Last Filed: 10/18/23 07:26> (1) Status post : (2) Encounter for assessment: Plan Patient with the above mentioned history and findings was evaluated at bedside and found awake, alert, oriented in all spheres, afebrile, and in no acute distress. Vital signs showing BP that was stable <140 systolic BP yesterday. Patient had only gotten the 10mg dose of Nifedipine in the morning, and then did not take the 30mg am dose due to symptoms of orthostatism. She then got the pm 30mg dose of Nifedipine and tolerated it well. This morning BP in the 140s systolic and 80s diastolic, which is still within goal range (goal: < 150 systolic, <100 diastolic). Patient has remained asymptomatic save for a headache she had yesterday that resolved with Motrin. No chest pain, SOB, vision changes, or RUQ pain. She is GBS negative and rubella immune. Overall, patient is doing well clinically. Will continue to monitor patient's blood pressures throughout today to ensure proper control with nifedipine and ensure tolerance. If patient's blood pressures were to remain stable with this antihypertensive dose, will consider discharging patient later today with home Nifedipine 30mg bid and follow-up in OB clinic within a week for a blood pressure check. Discharge instructions discussed. All questions were answered. <Cindi Richardson DO - Last Filed: 10/18/23 08:04> (1) Status post : (2) Encounter for assessment: Subjective <Asia Villalta MD - Last Filed: 10/18/23 07:26> Felipa is a 38 y/o female who is POD #4 following primary LTCS (NRFHT) at 38+ weeks. complicated by GDM and mild pre-eclampsia. She reports feeling well overall this morning. She had a headache yesterday that resolved after administration of Motrin Refers mild abdominal cramping & 2/10 pain well managed on analgesics. Voiding spontaneously. Tolerating meals overnight and able to ambulate some. Has passed gas but no bm yet. Has some persistent lochia with some improvement this morning. Currently . Constitutional: no fever, no chills or no sweats Denies shortness of breath or difficulty breathing. Cardiovascular: no chest pain or no palpitations Breast: no breast pain Genitourinary (female): no dysuria Neurologic: no headache(s) Denies changes in vision. Physical Exam <Asia Villalta MD - Last Filed: 10/18/23 07:26> General: Alert. Oriented to person, time, and place. Afebrile. No acute distress. Cardiac: Regular rate and rhythm, no murmurs/rubs/gallops. Respiratory: Clear to auscultation bilaterally a/p, no wheezes/rales/rhonchi. No increased work of breathing. Symmetrical chest rise. No respiratory distress. Abdomen: Soft, nontender, mildly distended. Low transverse surgical scar clean, without surrounding erythema or suppuration, and healing well. Uterus: Uterine fundus firm, non tender, and palpable below umbilicus. Lower Extremities: Bilateral LE swelling. No deep calf pain. Vanda's negative bilaterally. Psych: Euthymic affect. Mood and affect congruence. Regular speech rate and content. Results & Data <Asia Villalta MD - Last Filed: 10/18/23 07:26> Vital Signs (Past 12 Hours) Vital Signs Temp Pulse Resp BP Pulse Ox O2 Del Method 10/17/23 23:45 36.8 C 74 18 143/87 H 99 Room Air 10/17/23 20:15 36.7 C 93 H 18 148/91 H 100 Room Air Supervising Physician <Cindi Richardson DO - Last Filed: 10/18/23 08:04> Co-Signing Physician Notes Resident Physician Supervision Note: I was present with Dr. Villalta during the history and exam. I discussed the case with the resident and agree with the findings and plan as documented in the note. Any exceptions or clarifications are listed here: POD#4 doing well. Started Nifedipine 30mg XL yesterday BID, was sent an Rx for this. BPs have improved - she will make an appointment within the next week for BP check in office. Rx Percocet #20 tabs sent to pharmacy on file. Reviewed DC instructions, PP visit in 6w. Documented By: Cindi Richardson DO
--- NOTE | 2023-10-19 16:00 | Discharge Summary ---
Date of Service Date of admission 10/13/23 Date of discharge October 18, 2023 Admission HPI Per Admitting Provider 38yo at 38+wks ega with cc of elevated bp, now meeting criteria for diagnosis of preeclampsia without severe features admittted for induction of labor. Currently without funez or visual change. No ruq pain. No rom, vb. +FM. No ctx. Had cmp wnl. plts normal. urine prot/creat ratio 0.4. PNC c/b 1. GDM, diet controlled. 2. AMA PNL rh pos, ri, gbs neg. Discharge Data Consultations 10/13/23 14:43 Consult Anesthesiology Stat Procedures Performed Operation Date: 10/13/23 23:15 Actual Procedures p Primary Low Transverse Section in LD(Bilateral) - Sonal Al MD, [facility] Course (1) Pre-eclampsia: (2) Status post : (3) Non-reassuring electronic monitoring tracing: Plan The patient underwent the above stated procedure without incident and her postoperative course and recovery was complicated by persistently elevated bps necessitating initiation of anti-hypertensive medications. On her postoperative day #4 she was tolerating a regular diet, voiding spontaneously, ambulating without problem and was using oral meds for adequate pain control. Her postoperative hemoglobin was 11.1. She was given written and verbal discharge instructions and told to followup in office at 6wks. She was given appropriate pain medicine prescriptions. She had a planned followup in office for bp check 10/20/23. Coding Level of Care Code None Diagnoses Pre-eclampsia O14.90 Trimester: unspecified trimester Status post Z98.891 Non-reassuring electronic monitoring tracing O36.8390
== END 2023-10-18 15:22 | disposition home or self-care (01) | DRG 788 ==
LOC: OPB 11:34 → 4S1 11:39 → 4E2 10-14 03:14
DX: Z37.0 Single live birth; Z3A.38 38 weeks gestation of pregnancy; O14.04 Mild to moderate pre-eclampsia, complicating childbirth; O76 Abnormality in fetal heart rate and rhythm complicating labor and delivery; O24.420 Gestational diabetes mellitus in childbirth, diet controlled; Z83.3 Family history of diabetes mellitus